=== PATIENT | male | born 1935 | race Caucasian/White ===

== ENCOUNTER 2017-09-27 10:18 | Inpatient (IN) | payer MEDICARE, BC ==
[2017-09-27 10:40] LABS: BASO % 0.6 % (0.0-1.0); EOS # 0.3 10^3/uL (0.0-0.50); EOS % 4.6 % (0.0-3.0); HEMATOCRIT 41.4 % (42.0-52.0); HEMOGLOBIN 13.7 g/dl (13.5-17.5); IMMATURE GRANULOCYTE % 0.5 % (0-3.0); LYMPH # 1.3 10^3/uL (1.5-4.5); LYMPH % 20.3 % (24.0-44.0); MEAN CORPUSCULAR HEMOGLOBIN 29.8 pg (27.0-33.0); MEAN CORPUSCULAR HGB CONC 33.1 g/dl (32.0-36.5); MONO # 0.7 10^3/uL (0.0-0.8); MONO % 11.2 % (0.0-5.0); NEUTROPHILS # 3.9 10^3/uL (1.8-7.7); NEUTROPHILS % 62.8 % (36.0-66.0); PLATELET COUNT, AUTOMATED 192 10^3/uL (150-450); RED CELL DISTRIBUTION WIDTH 13.2 % (11.5-14.5); WHITE BLOOD COUNT 6.3 10^3/uL (4.0-10.0)
[2017-09-27 10:56] LABS: INR 1.02; PROTHROMBIN TIME 13.5 SECONDS (12.1-14.4)
[2017-09-27] MEDS ORDERED: MORPHINE 4 MG/ML 1ML VIAL/SYRINGE (J2270) IV (11:00)
[2017-09-27] MEDS ORDERED: ACETAMINOPHEN TAB 650MG DOSE (2X325MG) PO (11:00)
[2017-09-27] MEDS ORDERED: ONDANSETRON 4MG/2ML VIAL (J2405) IV ×2 (11:00→20:15)
[2017-09-27 11:05] LABS: ALBUMIN 3.5 GM/DL (3.2-5.2); ALBUMIN/GLOBULIN RATIO 0.83 (1.00-1.93); ALKALINE PHOSPHATASE 54 U/L (45-117); ALT/SGPT 13 U/L (12-78); ANION GAP 6 MEQ/L (8-16); AST/SGOT 15 U/L (7-37); BILIRUBIN,DIRECT 0.1 MG/DL (0.0-0.2); BILIRUBIN,TOTAL 0.4 MG/DL (0.2-1.0); BLOOD UREA NITROGEN 14 MG/DL (7-18); CALCIUM LEVEL 8.3 MG/DL (8.8-10.2); CARBON DIOXIDE LEVEL 28 MEQ/L (21-32); CHLORIDE LEVEL 103 MEQ/L (98-107); CPK CREATINE PHOSPHOKINASE 76 U/L (39-308); CREATININE FOR GFR 0.94 MG/DL (0.70-1.30); FREE T4 0.84 NG/DL (0.76-1.46); GLOMERULAR FILTRATION RATE > 60.0 (>35); GLUCOSE, FASTING 139 MG/DL (70-100); LIPASE 138 U/L (73-393); POTASSIUM SERUM 3.8 MEQ/L (3.5-5.1); SODIUM LEVEL 137 MEQ/L (136-145); TOTAL PROTEIN 7.7 GM/DL (6.4-8.2); TROPONIN I 0.07 NG/ML (< 0.10)
[2017-09-27 11:11] LABS: CK-MB VALUE MASS 1.3 NG/ML (<3.6); MB/CK RELATIVE INDEX 1.71 (< OR =4)
[2017-09-27] MEDS ORDERED: GLUCOSE 4 GM CHEW TABLET PO (11:45)
[2017-09-27] MEDS ORDERED: DEXTROSE 50% 50 ML SYRINGE IV (11:45)
[2017-09-27] MEDS ORDERED: GLUCAGON FOR INJ 1 MG VIAL (J1610) SC (11:45)
[2017-09-27] MEDS: NS 1,000 ML IV (12:52)
[2017-09-27] MEDS: HumaLOG INSULIN (NovoLOG) PER UNIT SC ×3 (14:00→23:49)
[2017-09-27 14:24] LABS: BEDSIDE GLUCOSE 98 MG/DL (83-110)
[2017-09-27] MEDS: ceFAZolin SOD 1 GM in D5W MINI-BAG PLUS 50 ML IV (16:58)
[2017-09-27 17:34] LABS: CK-MB VALUE MASS 1.3 NG/ML (<3.6); CPK CREATINE PHOSPHOKINASE 59 U/L (39-308); TROPONIN I 0.08 NG/ML (< 0.10)
[2017-09-27] MEDS ORDERED: PROPOFOL 200 MG/20 ML VIAL As Ordered (17:57)
[2017-09-27] MEDS ORDERED: fentaNYL 100 MCG/2 ML INJECTION (J3010) As Ordered (17:57)
[2017-09-27] MEDS ORDERED: ONDANSETRON 4MG/2ML VIAL (J2405) As Ordered (17:57)
[2017-09-27] MEDS: VANCOMYCIN 1000 MG/20 ML VIAL (J3370) As Ordered (19:46)
[2017-09-27] MEDS: ISOVUE-300 61% 50ML VIAL (Q9967) As Ordered (19:47)
[2017-09-27] MEDS: MUPIROCIN 2% OINT 22 GM TUBE As Ordered (19:48)
[2017-09-27] MEDS: LIDOCAINE 1% SDV INJ 30 ML VIAL As Ordered (20:00)
[2017-09-27] MEDS: LR 1,000 ML IV (20:15)
[2017-09-27] MEDS ORDERED: fentaNYL 100 MCG/2 ML INJECTION (J3010) IV (20:15)
[2017-09-27] MEDS ORDERED: NORCO, ANEXSIA 5/325MG TABLET (HYDROcodone/ACETAMINOPHEN) PO (20:15)
[2017-09-27] MEDS: ASCORBIC ACID 250 MG TAB PO (21:39)
[2017-09-27] MEDS: TELMISARTAN 20 MG TAB PO (21:40)
[2017-09-27] MEDS: SLF 3 ML SYR IV (22:00)
[2017-09-27] MEDS: POLYVINYL ALCOHOL OPHTH SOLN 15 ML(LIQUITEARS) OU (22:52)
[2017-09-27 22:56] LABS: BEDSIDE GLUCOSE 91 MG/DL (83-110)
[2017-09-28 01:32] LABS: CK-MB VALUE MASS 1.3 NG/ML (<3.6); CPK CREATINE PHOSPHOKINASE 72 U/L (39-308); TROPONIN I 0.16 NG/ML (< 0.10)
[2017-09-28 04:57] LABS: HEMATOCRIT 39.7 % (42.0-52.0); MEAN CORPUSCULAR HEMOGLOBIN 29.5 pg (27.0-33.0); MEAN CORPUSCULAR HGB CONC 32.7 g/dl (32.0-36.5); PLATELET COUNT, AUTOMATED 170 10^3/uL (150-450); RED BLOOD COUNT 4.41 10^6/uL (4.30-6.10); RED CELL DISTRIBUTION WIDTH 13.1 % (11.5-14.5); WHITE BLOOD COUNT 9.4 10^3/uL (4.0-10.0)
[2017-09-28 05:13] LABS: ALBUMIN 3.1 GM/DL (3.2-5.2); ANION GAP 6 MEQ/L (8-16); BLOOD UREA NITROGEN 10 MG/DL (7-18); CALCIUM LEVEL 7.9 MG/DL (8.8-10.2); CARBON DIOXIDE LEVEL 26 MEQ/L (21-32); CHLORIDE LEVEL 109 MEQ/L (98-107); CREATININE FOR GFR 0.64 MG/DL (0.70-1.30); GLOMERULAR FILTRATION RATE > 60.0 (>35); GLUCOSE, FASTING 93 MG/DL (70-100); PHOSPHORUS LEVEL 2.8 MG/DL (2.5-4.9); POTASSIUM SERUM 3.5 MEQ/L (3.5-5.1); SODIUM LEVEL 141 MEQ/L (136-145)
[2017-09-28] MEDS: HumaLOG INSULIN (NovoLOG) PER UNIT SC ×4 (05:44→21:00)
[2017-09-28 08:56] LABS: CK-MB VALUE MASS 1.2 NG/ML (<3.6); CPK CREATINE PHOSPHOKINASE 89 U/L (39-308); MB/CK RELATIVE INDEX 1.34 (< OR =4); TROPONIN I 0.19 NG/ML (< 0.10)
[2017-09-28] MEDS: ASCORBIC ACID 250 MG TAB PO ×2 (09:00→20:19)
[2017-09-28 12:15] LABS: BEDSIDE GLUCOSE 123 MG/DL (83-110)
[2017-09-28] MEDS ORDERED: ceFAZolin 1GM INJ (J0690 PER 500MG) As Ordered (15:45)
[2017-09-28] MEDS: ceFAZolin SOD 1 GM in D5W MINI-BAG PLUS 50 ML IV (16:03)
[2017-09-28] MEDS ORDERED: fentaNYL 100 MCG/2 ML INJECTION (J3010) As Ordered (16:32)
[2017-09-28] MEDS ORDERED: MIDAZOLAM INJ 2 MG/2 ML VIAL (J2250) As Ordered (16:32)
[2017-09-28] MEDS ORDERED: LIDOCAINE 2% INJ 100 MG/5 ML SDV (FOR ANES.) As Ordered (16:32)
[2017-09-28] MEDS ORDERED: ONDANSETRON 4MG/2ML VIAL (J2405) As Ordered (16:32)
[2017-09-28] MEDS ORDERED: PHENYLEPHRINE INJ 10MG/ML VIAL (J2370) As Ordered (16:33)
[2017-09-28] MEDS ORDERED: PROPOFOL 200 MG/20 ML VIAL As Ordered (16:33)
[2017-09-28] MEDS: LIDOCAINE 1% SDV INJ 30 ML VIAL As Ordered (17:01)
[2017-09-28] MEDS ORDERED: BACITRACIN OINT 30GM As Ordered (17:12)
[2017-09-28] MEDS: LR 1,000 ML IV (17:45)
[2017-09-28] MEDS ORDERED: ONDANSETRON 4MG/2ML VIAL (J2405) IV (17:45)
[2017-09-28 18:43] LABS: BEDSIDE GLUCOSE 126 MG/DL (83-110)
[2017-09-28] MEDS ORDERED: SLF 3 ML SYR IV (19:30)
[2017-09-28] MEDS: TELMISARTAN 20 MG TAB PO (20:19)
[2017-09-28] MEDS: POLYVINYL ALCOHOL OPHTH SOLN 15 ML(LIQUITEARS) OU (21:00)
[2017-09-28] MEDS ORDERED: LATANOPROST 0.005% OPHTH SOLN 2.5 ML OU (21:00)
[2017-09-28 21:45] LABS: BEDSIDE GLUCOSE 137 MG/DL (83-110)
[2017-09-28] MEDS: LUMIGAN 0.01% EYE DROPS (PATIENT'S OWN MED) OU (21:46)
[2017-09-28] MEDS: EYE OD (21:46)
[2017-09-28] MEDS: COMBIGAN OD (21:46)
[2017-09-28] MEDS: EPINASTINE 0.05% OU (21:47)
[2017-09-29 00:09] LABS: Lyme Disease IgG/IgM Antibodie <0.91 ISR (0.00-0.90); Lyme Disease IgM Ab Quantitati <0.80 index (0.00-0.79)
[2017-09-29 04:35] LABS: HEMATOCRIT 38.6 % (42.0-52.0); MEAN CORPUSCULAR HEMOGLOBIN 30.1 pg (27.0-33.0); MEAN CORPUSCULAR HGB CONC 33.7 g/dl (32.0-36.5); MEAN CORPUSCULAR VOLUME 89.4 fl (80.0-96.0); PLATELET COUNT, AUTOMATED 152 10^3/uL (150-450); RED BLOOD COUNT 4.32 10^6/uL (4.30-6.10); WHITE BLOOD COUNT 7.3 10^3/uL (4.0-10.0)
[2017-09-29 04:49] LABS: ALBUMIN 2.9 GM/DL (3.2-5.2); ANION GAP 7 MEQ/L (8-16); BLOOD UREA NITROGEN 9 MG/DL (7-18); CALCIUM LEVEL 7.7 MG/DL (8.8-10.2); CARBON DIOXIDE LEVEL 27 MEQ/L (21-32); CHLORIDE LEVEL 107 MEQ/L (98-107); CREATININE FOR GFR 0.61 MG/DL (0.70-1.30); GLOMERULAR FILTRATION RATE > 60.0 (>35); GLUCOSE, FASTING 98 MG/DL (70-100); MAGNESIUM LEVEL 2.1 MG/DL (1.8-2.4); PHOSPHORUS LEVEL 2.9 MG/DL (2.5-4.9); POTASSIUM SERUM 3.5 MEQ/L (3.5-5.1); SODIUM LEVEL 141 MEQ/L (136-145)
[2017-09-29] MEDS: SLF 3 ML SYR IV (06:00)
[2017-09-29] MEDS: HumaLOG INSULIN (NovoLOG) PER UNIT SC ×2 (07:26→12:00)
[2017-09-29] MEDS: ASCORBIC ACID 250 MG TAB PO (09:30)
[2017-09-29] MEDS: COMBIGAN OD (09:30)
[2017-09-29] MEDS: EYE OD (09:30)
[2017-09-29] MEDS: EPINASTINE 0.05% OU (09:30)
[2017-09-29 12:18] LABS: BEDSIDE GLUCOSE 148 MG/DL (83-110)
== END 2017-09-29 14:16 | disposition home or self-care (01) | DRG 243 ==
LOC: M ICU 09-28 13:26 → M ED 10:18 → M ED INP 10:52 → M ICU 13:15
PROC: 0JH636Z Insertion of Pacemaker, Dual Chamber into Chest Subcutaneous Tissue and Fascia, Percutaneous Approach (ICD-10-PCS; principal; 2017-09-27 13:27)
PROC: 02H Heart and Great Vessels, Insertion (ICD-10-PCS; 2017-09-27 13:27)
PROC: 02WA3MZ Revision of Cardiac Lead in Heart, Percutaneous Approach (ICD-10-PCS; 2017-09-27 17:38)
DX: I44.1 Atrioventricular block, second degree (principal); T82.120A Displacement of cardiac electrode, initial encounter; I10 Essential (primary) hypertension; E11.9 Type 2 diabetes mellitus without complications; H40.9 Unspecified glaucoma; Z96.642 Presence of left artificial hip joint; Y82.8 Other medical devices associated with adverse incidents

== ENCOUNTER → 2017-11-08 | Outpatient (CLI) | payer MEDICARE, BC ==
[2017-11-08 12:58] LABS: BLOOD UREA NITROGEN 11 MG/DL (7-18)
[2017-11-08 12:58] LABS: CREATININE FOR GFR 0.75 MG/DL (0.70-1.30); GLOMERULAR FILTRATION RATE > 60.0 (>35)
== END ==
LOC: M LAB 11:35
DX: H47.291 Other optic atrophy, right eye (principal)
CPT/HCPCS: 82565

== ENCOUNTER → 2017-11-18 | Outpatient (CLI) | payer MEDICARE, BC ==
[~2017-11-18] MED LIST: ISOVUE-370 76% 100ML VIAL (Q9967) As Ordered
== END ==
LOC: M RAD 09:28
DX: H47.20 Unspecified optic atrophy (principal); I67.82 Cerebral ischemia
CPT/HCPCS: Q9967

== ENCOUNTER 2018-01-03 10:11 | Inpatient (IN) | payer MEDICARE, BC ==
[2018-01-03 11:01] LABS: HEMATOCRIT 39.9 % (42.0-52.0); HEMOGLOBIN 13.8 g/dl (13.5-17.5); MEAN CORPUSCULAR HEMOGLOBIN 29.8 pg (27.0-33.0); MEAN CORPUSCULAR HGB CONC 34.6 g/dl (32.0-36.5); MEAN CORPUSCULAR VOLUME 86.2 fl (80.0-96.0); PLATELET COUNT, AUTOMATED 165 10^3/uL (150-450); RED BLOOD COUNT 4.63 10^6/uL (4.30-6.10); RED CELL DISTRIBUTION WIDTH 13.4 % (11.5-14.5); WHITE BLOOD COUNT 11.6 10^3/uL (4.0-10.0)
[2018-01-03 11:12] LABS: ADD MANUAL DIFFER YES; DIFF SLIDE NUMBER 196; POSITIVE MORPH POS FLAG
[2018-01-03 11:30] LABS: BANDS 5 % (< 11); LYMPHOCYTES 10 % (16-52); MONOCYTES 7 % (0-8); NEUTROPHILS 78 % (35-75); PLATELET ESTIMATE NORMAL (NORMAL)
[2018-01-03 11:48] LABS: ANION GAP 10 MEQ/L (8-16); BLOOD UREA NITROGEN 10 MG/DL (7-18); CALCIUM LEVEL 8.1 MG/DL (8.8-10.2); CARBON DIOXIDE LEVEL 27 MEQ/L (21-32); CHLORIDE LEVEL 92 MEQ/L (98-107); CK-MB VALUE MASS < 1.0 NG/ML (<3.6); CPK CREATINE PHOSPHOKINASE 67 U/L (39-308); CREATININE FOR GFR 0.85 MG/DL (0.70-1.30); GLOMERULAR FILTRATION RATE > 60.0 (>35); GLUCOSE, FASTING 113 MG/DL (70-100); MB/CK RELATIVE INDEX 1.49 (< OR =4); NT-PRO BNP 1472 PG/ML (<450); POTASSIUM SERUM 4.3 MEQ/L (3.5-5.1); SODIUM LEVEL 129 MEQ/L (136-145); TROPONIN I 0.04 NG/ML (< 0.10)
[2018-01-03 11:53] LABS: INFLUENZA A AMPLIFICATION NEGATIVE (NEGATIVE); INFLUENZA B AMPLIFICATION NEGATIVE (NEGATIVE); RSV AMPLIFICATION NEGATIVE (NEGATIVE)
[2018-01-03] MEDS: ACETAMINOPHEN TAB 650MG DOSE (2X325MG) PO (12:38)
[2018-01-03] MEDS: NS 1,000 ML IV ×3 (13:25→23:53)
[2018-01-03] MEDS: cefTRIAXone SOD 1 GM in D5W MINI-BAG PLUS 50 ML IV (13:25)
[2018-01-03] MEDS ORDERED: ONDANSETRON 4 MG TAB (S0181) PO (14:30)
[2018-01-03] MEDS ORDERED: ACETAMINOPHEN TAB 650MG DOSE (2X325MG) PO (14:30)
[2018-01-03] MEDS ORDERED: IPRATROPIUM 0.5MG/ALBUTEROL 2.5MG INH SOL UD 3ML (DUONEB)(J7620) NEB (14:30)
[2018-01-03] MEDS ORDERED: DEXTRAN/HYPROMELLOSE OPHTH SOLN 15 ML(GENTEAL TEARS) OU (14:45)
[2018-01-03 15:00] LABS: OSMOLALITY SERUM 261 MOSM/KG (280-301)
[2018-01-03 15:24] LABS: CK-MB VALUE MASS < 1.0 NG/ML (<3.6); CPK CREATINE PHOSPHOKINASE 59 U/L (39-308); MB/CK RELATIVE INDEX 1.69 (< OR =4); TROPONIN I 0.04 NG/ML (< 0.10)
[2018-01-03] MEDS: AZITHROMYCIN 250 MG TAB PO (16:00)
[2018-01-03 16:44] LABS: ESTIMATED AVERAGE GLUCOSE 120 MG/DL (60-110); HEMOGLOBIN A1c 5.8 %
[2018-01-03 19:17] LABS: SODIUM,RANDOM URINE < 10 MEQ/L
[2018-01-03] MEDS: TELMISARTAN 20 MG TAB PO (21:00)
[2018-01-04] MEDS: UNRESOLVED CLARIFICATION ENTRY XX ×2 (00:01→22:22)
[2018-01-04] MEDS: cefTRIAXone SOD 2 GM in D5W MINI-BAG PLUS 50 ML IV (05:24)
[2018-01-04] MEDS ORDERED: AZITHROMYCIN INJ 500 MG, VIAL MATE ADAPTER 1 EACH in D5W 250 ML IV (06:00)
[2018-01-04 06:31] LABS: BASO % 0.3 % (0.0-1.0); EOS # 0.1 10^3/uL (0.0-0.50); EOS % 0.7 % (0.0-3.0); HEMATOCRIT 34.3 % (42.0-52.0); IMMATURE GRANULOCYTE % 0.4 % (0-3.0); LYMPH % 9.9 % (24.0-44.0); MEAN CORPUSCULAR HEMOGLOBIN 29.5 pg (27.0-33.0); MEAN CORPUSCULAR HGB CONC 34.1 g/dl (32.0-36.5); MEAN CORPUSCULAR VOLUME 86.6 fl (80.0-96.0); MONO # 1.3 10^3/uL (0.0-0.8); MONO % 13.8 % (0.0-5.0); NEUTROPHILS # 7.3 10^3/uL (1.8-7.7); NEUTROPHILS % 74.9 % (36.0-66.0); PLATELET COUNT, AUTOMATED 162 10^3/uL (150-450); RED BLOOD COUNT 3.96 10^6/uL (4.30-6.10); RED CELL DISTRIBUTION WIDTH 13.3 % (11.5-14.5); WHITE BLOOD COUNT 9.7 10^3/uL (4.0-10.0)
[2018-01-04 06:32] LABS: HEMOGLOBIN 11.7 g/dl (13.5-17.5)
[2018-01-04 06:48] LABS: ANION GAP 6 MEQ/L (8-16); BLOOD UREA NITROGEN 11 MG/DL (7-18); CALCIUM LEVEL 7.6 MG/DL (8.8-10.2); CARBON DIOXIDE LEVEL 27 MEQ/L (21-32); CHLORIDE LEVEL 95 MEQ/L (98-107); CREATININE FOR GFR 0.64 MG/DL (0.70-1.30); GLOMERULAR FILTRATION RATE > 60.0 (>35); GLUCOSE, FASTING 108 MG/DL (70-100); SODIUM LEVEL 128 MEQ/L (136-145)
[2018-01-04] MEDS: ENOXAPARIN 40 MG/0.4 ML SYRINGE (J1650) SC (09:00)
[2018-01-04] MEDS: AZITHROMYCIN 250 MG TAB PO (09:42)
[2018-01-04] MEDS: amLODIPine 5 MG TAB PO (09:42)
[2018-01-04] MEDS: FLUBLOK(EGG FREE)(QUAD)INFLUENZA VACC 0.5ML SYRINGE (90682)18YRS&OLDER IM (09:47)
[2018-01-04] MEDS: NS 1,000 ML IV (09:48)
[2018-01-04] MEDS: TELMISARTAN 20 MG TAB PO (21:00)
[2018-01-05 02:43] LABS: BEDSIDE GLUCOSE 122 MG/DL (83-110)
[2018-01-05 02:43] LABS: BEDSIDE GLUCOSE 144 MG/DL (83-110)
[2018-01-05] MEDS: cefTRIAXone SOD 2 GM in D5W MINI-BAG PLUS 50 ML IV (06:20)
[2018-01-05] MEDS: AZITHROMYCIN 250 MG TAB PO (08:14)
[2018-01-05] MEDS: ENOXAPARIN 40 MG/0.4 ML SYRINGE (J1650) SC (08:15)
[2018-01-05] MEDS: amLODIPine 5 MG TAB PO (08:15)
[2018-01-05 08:44] LABS: BASO # 0.1 10^3/uL (0.0-0.2); BASO % 0.6 % (0.0-1.0); EOS # 0.2 10^3/uL (0.0-0.50); EOS % 1.6 % (0.0-3.0); HEMATOCRIT 36.1 % (42.0-52.0); HEMOGLOBIN 12.3 g/dl (13.5-17.5); IMMATURE GRANULOCYTE % 0.7 % (0-3.0); LYMPH # 0.9 10^3/uL (1.5-4.5); LYMPH % 8.2 % (24.0-44.0); MEAN CORPUSCULAR HEMOGLOBIN 29.1 pg (27.0-33.0); MEAN CORPUSCULAR HGB CONC 34.1 g/dl (32.0-36.5); MEAN CORPUSCULAR VOLUME 85.5 fl (80.0-96.0); MONO # 1.1 10^3/uL (0.0-0.8); NEUTROPHILS # 8.4 10^3/uL (1.8-7.7); NEUTROPHILS % 78.9 % (36.0-66.0); PLATELET COUNT, AUTOMATED 201 10^3/uL (150-450); RED BLOOD COUNT 4.22 10^6/uL (4.30-6.10); RED CELL DISTRIBUTION WIDTH 13.3 % (11.5-14.5); WHITE BLOOD COUNT 10.7 10^3/uL (4.0-10.0)
[2018-01-05 09:03] LABS: ANION GAP 11 MEQ/L (8-16); BLOOD UREA NITROGEN 12 MG/DL (7-18); CALCIUM LEVEL 7.6 MG/DL (8.8-10.2); CARBON DIOXIDE LEVEL 22 MEQ/L (21-32); CHLORIDE LEVEL 94 MEQ/L (98-107); CREATININE FOR GFR 0.68 MG/DL (0.70-1.30); GLOMERULAR FILTRATION RATE > 60.0 (>35); GLUCOSE, FASTING 142 MG/DL (70-100); POTASSIUM SERUM 4.1 MEQ/L (3.5-5.1); SODIUM LEVEL 127 MEQ/L (136-145)
[2018-01-05] MEDS: TELMISARTAN 20 MG TAB PO (21:53)
[2018-01-06] MEDS: UNRESOLVED CLARIFICATION ENTRY XX (00:01)
[2018-01-06] MEDS: cefTRIAXone SOD 2 GM in D5W MINI-BAG PLUS 50 ML IV (06:04)
[2018-01-06 06:13] LABS: BASO % 0.4 % (0.0-1.0); EOS # 0.2 10^3/uL (0.0-0.50); EOS % 2.7 % (0.0-3.0); HEMOGLOBIN 11.4 g/dl (13.5-17.5); IMMATURE GRANULOCYTE % 0.8 % (0-3.0); MEAN CORPUSCULAR HEMOGLOBIN 28.9 pg (27.0-33.0); MEAN CORPUSCULAR HGB CONC 34.5 g/dl (32.0-36.5); MEAN CORPUSCULAR VOLUME 83.8 fl (80.0-96.0); MONO # 1.4 10^3/uL (0.0-0.8); NEUTROPHILS # 6.2 10^3/uL (1.8-7.7); NEUTROPHILS % 69.1 % (36.0-66.0); PLATELET COUNT, AUTOMATED 229 10^3/uL (150-450); RED BLOOD COUNT 3.94 10^6/uL (4.30-6.10); RED CELL DISTRIBUTION WIDTH 13.1 % (11.5-14.5); WHITE BLOOD COUNT 8.9 10^3/uL (4.0-10.0)
[2018-01-06 06:31] LABS: ANION GAP 7 MEQ/L (8-16); BLOOD UREA NITROGEN 7 MG/DL (7-18); C REACTIVE PROTEIN QUANTITATIV 8.48 MG/DL (0.00-0.30); CALCIUM LEVEL 7.6 MG/DL (8.8-10.2); CARBON DIOXIDE LEVEL 24 MEQ/L (21-32); CHLORIDE LEVEL 95 MEQ/L (98-107); CREATININE FOR GFR 0.67 MG/DL (0.70-1.30); GLOMERULAR FILTRATION RATE > 60.0 (>35); GLUCOSE, FASTING 125 MG/DL (70-100); MAGNESIUM LEVEL 1.9 MG/DL (1.8-2.4); POTASSIUM SERUM 3.7 MEQ/L (3.5-5.1); SODIUM LEVEL 126 MEQ/L (136-145)
[2018-01-06] MEDS: NS 1,000 ML IV ×2 (09:40→18:56)
[2018-01-06] MEDS: ENOXAPARIN 40 MG/0.4 ML SYRINGE (J1650) SC (09:40)
[2018-01-06] MEDS: AZITHROMYCIN 250 MG TAB PO (09:40)
[2018-01-06] MEDS: amLODIPine 5 MG TAB PO (09:41)
[2018-01-06] MEDS: TELMISARTAN 20 MG TAB PO (23:54)
[2018-01-07] MEDS: cefTRIAXone SOD 2 GM in D5W MINI-BAG PLUS 50 ML IV (05:08)
[2018-01-07 06:45] LABS: BASO # 0.1 10^3/uL (0.0-0.2); BASO % 0.7 % (0.0-1.0); EOS # 0.3 10^3/uL (0.0-0.50); EOS % 3.1 % (0.0-3.0); HEMATOCRIT 37.5 % (42.0-52.0); IMMATURE GRANULOCYTE % 1.1 % (0-3.0); LYMPH # 1.5 10^3/uL (1.5-4.5); LYMPH % 17.7 % (24.0-44.0); MEAN CORPUSCULAR HEMOGLOBIN 29.5 pg (27.0-33.0); MEAN CORPUSCULAR HGB CONC 34.7 g/dl (32.0-36.5); MEAN CORPUSCULAR VOLUME 85.2 fl (80.0-96.0); MONO # 1.3 10^3/uL (0.0-0.8); MONO % 15.7 % (0.0-5.0); NEUTROPHILS # 5.1 10^3/uL (1.8-7.7); NEUTROPHILS % 61.7 % (36.0-66.0); PLATELET COUNT, AUTOMATED 303 10^3/uL (150-450); RED CELL DISTRIBUTION WIDTH 13.2 % (11.5-14.5); WHITE BLOOD COUNT 8.3 10^3/uL (4.0-10.0)
[2018-01-07 07:16] LABS: ANION GAP 8 MEQ/L (8-16); BLOOD UREA NITROGEN 6 MG/DL (7-18); CALCIUM LEVEL 8.3 MG/DL (8.8-10.2); CARBON DIOXIDE LEVEL 26 MEQ/L (21-32); CHLORIDE LEVEL 100 MEQ/L (98-107); CREATININE FOR GFR 0.64 MG/DL (0.70-1.30); GLOMERULAR FILTRATION RATE > 60.0 (>35); GLUCOSE, FASTING 87 MG/DL (70-100); MAGNESIUM LEVEL 2.1 MG/DL (1.8-2.4); POTASSIUM SERUM 4.1 MEQ/L (3.5-5.1); SODIUM LEVEL 134 MEQ/L (136-145)
[2018-01-07] MEDS: amLODIPine 5 MG TAB PO (08:22)
[2018-01-07] MEDS: ENOXAPARIN 40 MG/0.4 ML SYRINGE (J1650) SC (08:22)
[2018-01-07] MEDS: AZITHROMYCIN 250 MG TAB PO (08:22)
[2018-01-09 00:08] LABS: BODY FLUID CULTURE Not Indicated (.); LEGIONELLA ANTIGEN URINE Negative (Negative); ORGANISM ID Not indicated. (.); SPECIMEN SOURCE Urine (.); URINE STREP PNEUMONIAE ANTIGEN Negative (Negative)
== END 2018-01-07 11:30 | disposition home or self-care (01) | DRG 194 ==
LOC: M ED 10:11 → M ED INP 14:08 → M MS5PR 16:41
DX: J18.9 Pneumonia, unspecified organism (principal); E87.1 Hypo-osmolality and hyponatremia; E11.9 Type 2 diabetes mellitus without complications; I10 Essential (primary) hypertension; R00.1 Bradycardia, unspecified; Z79.899 Other long term (current) drug therapy; Z95.0 Presence of cardiac pacemaker; Z96.642 Presence of left artificial hip joint; Z85.828 Personal history of other malignant neoplasm of skin

== ENCOUNTER → 2018-03-18 | Outpatient (CLI) | payer MEDICARE, BC ==
[~2018-03-18] MED LIST changes: +/WARF25TA OR; +AMLO5TAB6 PO; +ASCO250T PO; +ASCO25TA PO; +BIMA01SOL OU; +CEFD1CAP8 PO; +COMB0.2S OD; +ENALAPRIL PO; +EPIN0.054 OU; +EPIN1DRO OU; +HYDR12.55 PO; +HYDROCHLOROTHIZIDE PO; -ISOVUE-370 76% 100ML VIAL (Q9967) As Ordered; +LIPITOR PO; +METF500T13 PO; +METH50TA2 PO; +MICA5TAB PO; +PERCOCET OR; +RHIN32SU; +SLOWTAB2 PO; +TELM1TAB37 PO; +TYLE325T5 PO; +VENTAER INH; +VYZU0.02 OU
--- NOTE | 2018-03-18 17:50 | REP ---
Duplex carotid sonography: History: Optic atrophy right eye. Visual loss, right eye. No comparison sonography. Findings: Antegrade flow was observed in both vertebral arteries. Right carotid: The right common carotid artery shows mild diffuse intimal thickening. There is minimal soft plaquing in the bulb and proximal ICA on right side on two-dimensional scanning. Color flow and spectral Doppler interrogation are unremarkable on the right. Velocity chart right carotid: Right CCA PSV 97 cm/S Right ICA PSV 83 EDV 26 Right ECA PSV 62 Right ICA/CCA ratio normal 0.9. Impression: 0-15% category narrowing in the right ICA by Doppler velocity criteria. Left carotid: Left common carotid artery shows diffuse intimal thickening. There is moderate mixed plaquing focally in the left carotid bulb on two-dimensional scanning. Color flow and spectral Doppler interrogation are unremarkable however on the left. Velocity chart left carotid: Left CCA PSV 100 cm/S Left ICA PSV 77 EDV 22 Left ECA PSV 52 Left ICA/CCA ratio normal for 0.8. Impression: 16-49% category narrowing in the left ICA by Doppler velocity criteria. Electronically Signed by Maico Biggs MD 03/18/2018 06:18 P
== END ==
LOC: M RAD 13:09
PROVIDERS: ATTEND Ophthalmology
DX: H53.121 Transient visual loss, right eye (principal); I65.22 Occlusion and stenosis of left carotid artery

== ENCOUNTER 2023-03-20 15:36 | Inpatient (IN) | payer BC, MEDICARE ==
[~2023-03-20] VITALS: Ht 180.3 cm; Wt 75.0 kg
[~2023-03-20 15:36] MED LIST changes: -/WARF25TA OR; +AMLO1TAB24 PO; -AMLO5TAB6 PO; +ASCO250T20 PO; -ASCO25TA PO; -CEFD1CAP8 PO; +CEFD1CAP9 PO; +COUM1TAB18 OR; +METH50TA10 PO; -METH50TA2 PO; +OXYC1TAB23 OR; -PERCOCET OR
[2023-03-20 16:27] LABS: VENOUS BASE EXCESS -0.5 (-2.0-2.0); VENOUS HCO3 22.9 MMOL/L (23.0-27.0); VENOUS PARTIAL PRESSURE CO2 34.3 mmHg (38.0-50.0); VENOUS PARTIAL PRESSURE O2 71.9 mmHg (30.0-50.0); VENOUS PH 7.442 UNITS (7.330-7.430); VENOUS TOTAL CO2 23.9 MMOL/L (24.0-28.0)
[2023-03-20 16:34] LABS: BASO % 0.4 % (0.0-1.0); EOS # 0.1 10^3/uL (0.0-0.5); EOS % 0.8 % (0.0-3.0); HEMOGLOBIN 15.5 g/dl (13.5-17.5); LYMPH # 1.7 10^3/uL (1.5-5.0); LYMPH % 15.3 % (24.0-44.0); MEAN CORPUSCULAR HEMOGLOBIN 29.9 pg (27.0-33.0); MEAN CORPUSCULAR HGB CONC 34.4 g/dl (32.0-36.5); MEAN CORPUSCULAR VOLUME 86.9 fl (80.0-96.0); MONO % 8.9 % (2.0-8.0); NEUTROPHILS # 8.3 10^3/uL (1.5-8.5); NEUTROPHILS % 74.2 % (36.0-66.0); PLATELET COUNT, AUTOMATED 253 10^3/uL (150-450); RED BLOOD COUNT 5.18 10^6/uL (4.30-6.10); WHITE BLOOD COUNT 11.1 10^3/uL (4.0-10.0)
[2023-03-20 16:57] LABS: ALBUMIN 3.9 G/DL (3.2-5.2); ALKALINE PHOSPHATASE 97 U/L (46-116); ALT/SGPT 18 U/L (7.0-40); AST/SGOT 23 U/L (<34); BILIRUBIN,DIRECT 0.2 MG/DL (<0.4); BILIRUBIN,TOTAL 0.6 MG/DL (0.3-1.2); BLOOD UREA NITROGEN 11 MG/DL (9-23); CALCIUM LEVEL 9.2 MG/DL (8.3-10.6); CARBON DIOXIDE LEVEL 26 MMOL/L (20-31); CHLORIDE LEVEL 96 MMOL/L (98-107); CREATININE FOR GFR 0.64 MG/DL (0.70-1.30); GLOMERULAR FILTRATION RATE > 60.0 (>35); GLUCOSE, FASTING 123 MG/DL (74-106); POTASSIUM SERUM 4.3 MMOL/L (3.5-5.1); SODIUM LEVEL 129 MMOL/L (136-145); TOTAL PROTEIN 7.7 G/DL (5.7-8.2)
[2023-03-20 16:59] LABS: THYROID STIMULATING HORMONE 4.405 uIU/ML (0.55-4.78)
[2023-03-20] MEDS ORDERED: ISOVUE-370 76% 100ML VIAL As Ordered ONE (17:09)
[2023-03-20] MEDS ORDERED: methylPREDNISolone 125MG 2ML VIAL IV ONE (17:45)
[2023-03-20] MEDS ORDERED: AZITHROMYCIN 250MG TABLET PO ONE (17:45)
[2023-03-20] MEDS ORDERED: cefTRIAXone SOD 1 GM in D5W MINI-BAG PLUS 50 ML IV ONE (17:45)
[2023-03-20] MEDS ORDERED: IPRATROPIUM 0.5MG/ALBUTEROL 2.5MG INH SOL UD 3ML (DUONEB) NEB PRN (17:45)
[2023-03-20] MEDS ORDERED: MED REC IN PROGRESS XX SCH (18:50)
[2023-03-20] MEDS ORDERED: MAALOX 30 ML SUSP *UDC PO PRN (19:35)
[2023-03-20] MEDS ORDERED: MOM 30ML SUSPENSION UDC PO PRN (19:35)
[2023-03-20] MEDS ORDERED: ACETAMINOPHEN TAB 650MG DOSE (2X325MG) PO PRN (19:35)
[2023-03-20] MEDS ORDERED: CLOT1CRE71 TOP (19:39)
[2023-03-20] MEDS ORDERED: HYDR12CA PO (19:39)
[2023-03-20] MEDS ORDERED: CLOT1CRE56 TOP (19:39)
[2023-03-20] MEDS ORDERED: XALA0.007 OU (19:39)
[2023-03-20] MEDS ORDERED: FLUT1BLS8 INH (19:39)
[2023-03-20] MEDS ORDERED: ATOR1TAB19 PO (19:39)
[2023-03-20] MEDS ORDERED: TAMS1CAP17 PO (19:39)
[2023-03-20] MEDS ORDERED: ERYT5OIN25 OU (19:39)
[2023-03-20] MEDS ORDERED: PREDOPD OD (19:39)
[2023-03-20] MEDS ORDERED: ASCO250T20 PO (19:44)
[2023-03-20] MEDS ORDERED: HOME MED LIST COMPLETE! XX SCH (19:45)
[2023-03-20] MEDS: NS 1,000 ML IV SCH (20:08)
[2023-03-20] MEDS ORDERED: CLOTRIMAZOLE 1% TOPICAL CREAM 30GM TOP PRN (20:15)
[2023-03-20] MEDS ORDERED: ERYTHROMYCIN OPHTH OINT OU PRN (20:15)
[2023-03-20] MEDS ORDERED: ALBUTEROL 90 MCG/ACT 8GM HFA INHALER INH PRN (20:15)
[2023-03-20 20:39] LABS: PROCALCITONIN <0.04 ng/ml
[2023-03-20 21:46] LABS: INR 1.1; PROTHROMBIN TIME 13.9 SECONDS (12.5-14.5)
[2023-03-20 21:47] LABS: PARTIAL THROMBOPLASTIN TIME 31.3 SECONDS (24.8-34.2)
[2023-03-20] MEDS: IPRATROPIUM 0.5MG/ALBUTEROL 2.5MG INH SOL UD 3ML (DUONEB) INH SCH (22:03)
[2023-03-20] MEDS: TELMISARTAN 20 MG TAB PO SCH (23:59)
[2023-03-20] MEDS: TAMSULOSIN 0.4 MG CAP PO SCH (23:59)
[2023-03-20] MEDS: ATORVASTATIN 10 MG TAB PO SCH (23:59)
[2023-03-20] MEDS: ASCORBIC ACID 250 MG TAB PO SCH (23:59)
[2023-03-21] MEDS: IPRATROPIUM 0.5MG/ALBUTEROL 2.5MG INH SOL UD 3ML (DUONEB) INH SCH (01:17)
[2023-03-21] MEDS: NS 1,000 ML IV SCH ×3 (04:40→20:44)
[2023-03-21] MEDS ORDERED: metFORMIN (GLUCOPHAGE) 500MG TAB PO SCH (08:00)
[2023-03-21] MEDS: TIOTROPIUM INHALER/CAPSULE (SPIRIVA) INH SCH (08:24)
[2023-03-21] MEDS: IPRATROPIUM 0.5MG/ALBUTEROL 2.5MG INH SOL UD 3ML (DUONEB) NEB SCH ×5 (08:25→23:54)
[2023-03-21] MEDS: ADVAIR HFA 230/21MCG INHALER INH SCH ×2 (08:25→19:17)
[2023-03-21] MEDS: LACTOBACILLUS ACIDOPHILUS CAP (BACID) PO SCH ×3 (08:53→18:00)
[2023-03-21] MEDS: CEFDINIR 300 MG CAP (OMNICEF) PO SCH ×2 (08:53→21:47)
[2023-03-21] MEDS: hydroCHLOROthiazide 12.5 MG CAPSULE PO SCH (08:53)
[2023-03-21] MEDS: DOCUSATE SODIUM 100MG CAPSULE PO SCH ×3 (08:54→21:50)
[2023-03-21] MEDS: guaiFENesin ER TABLET 600 MG TAB PO SCH ×2 (08:54→20:29)
[2023-03-21] MEDS: predniSONE 20 MG TAB PO SCH (08:54)
[2023-03-21] MEDS: AZITHROMYCIN 250MG TABLET PO SCH (08:54)
[2023-03-21] MEDS: amLODIPine 5 MG TAB PO SCH (08:55)
[2023-03-21] MEDS: PANTOPRAZOLE 40MG TAB (PROTONIX) PO SCH (08:55)
[2023-03-21] MEDS ORDERED: ENOXAPARIN 40MG/0.4ML SYRINGE (J1650 PER 10MG) SC SCH (09:00)
[2023-03-21] MEDS ORDERED: ENTER DRUG NAME HERE (PATIENT'S OWN MED) INH SCH (09:00)
[2023-03-21] MEDS: ASCORBIC ACID 250 MG TAB PO SCH ×2 (09:00→21:47)
[2023-03-21] MEDS: ENOXAPARIN 40MG/0.4ML SYRINGE (J1650 PER 10MG) SC SCH (09:00)
[2023-03-21] MEDS: prednisoLONE ACET 1% OPHTH SUSP 5ML OD SCH (09:00)
[2023-03-21 09:03] LABS: BASO % 0.1 % (0.0-1.0); HEMOGLOBIN 14.3 g/dl (13.5-17.5); LYMPH # 1.1 10^3/uL (1.5-5.0); LYMPH % 9.8 % (24.0-44.0); MEAN CORPUSCULAR HGB CONC 34.9 g/dl (32.0-36.5); MONO # 0.2 10^3/uL (0.0-0.8); MONO % 2.1 % (2.0-8.0); NEUTROPHILS # 9.4 10^3/uL (1.5-8.5); NEUTROPHILS % 87.4 % (36.0-66.0); PLATELET COUNT, AUTOMATED 238 10^3/uL (150-450); RED BLOOD COUNT 4.77 10^6/uL (4.30-6.10); WHITE BLOOD COUNT 10.7 10^3/uL (4.0-10.0)
[2023-03-21 09:04] LABS: HEMATOCRIT 41.3 % (42.0-52.0); MEAN CORPUSCULAR HEMOGLOBIN 29.4 pg (27.0-33.0); MEAN CORPUSCULAR HGB CONC 33.9 g/dl (32.0-36.5); MEAN CORPUSCULAR VOLUME 86.8 fl (80.0-96.0); PLATELET COUNT, AUTOMATED 230 10^3/uL (150-450); RED BLOOD COUNT 4.76 10^6/uL (4.30-6.10); WHITE BLOOD COUNT 10.4 10^3/uL (4.0-10.0)
[2023-03-21 09:37] LABS: BLOOD UREA NITROGEN 14 MG/DL (9-23); CALCIUM LEVEL 8.6 MG/DL (8.3-10.6); CARBON DIOXIDE LEVEL 23 MMOL/L (20-31); CHLORIDE LEVEL 98 MMOL/L (98-107); CREATININE FOR GFR 0.59 MG/DL (0.70-1.30); GLOMERULAR FILTRATION RATE > 60.0 (>35); GLUCOSE, FASTING 243 MG/DL (74-106); MAGNESIUM LEVEL 1.8 MG/DL (1.8-2.4); OSMOLALITY SERUM 287 MOSM/KG (280-301); POTASSIUM SERUM 4.2 MMOL/L (3.5-5.1); SODIUM LEVEL 130 MMOL/L (136-145)
[2023-03-21 09:40] LABS: ALBUMIN 3.4 G/DL (3.2-5.2); ALKALINE PHOSPHATASE 86 U/L (46-116); ALT/SGPT 18 U/L (7.0-40); AST/SGOT 15 U/L (<34); BILIRUBIN,TOTAL 0.5 MG/DL (0.3-1.2); BLOOD UREA NITROGEN 14 MG/DL (9-23); CALCIUM LEVEL 8.5 MG/DL (8.3-10.6); CARBON DIOXIDE LEVEL 23 MMOL/L (20-31); CHLORIDE LEVEL 100 MMOL/L (98-107); CREATININE FOR GFR 0.61 MG/DL (0.70-1.30); GLOMERULAR FILTRATION RATE > 60.0 (>35); GLUCOSE, FASTING 233 MG/DL (74-106); POTASSIUM SERUM 4.3 MMOL/L (3.5-5.1); SODIUM LEVEL 132 MMOL/L (136-145); TOTAL PROTEIN 6.9 G/DL (5.7-8.2)
[2023-03-21] MEDS ORDERED: SODIUM CHLORIDE NASAL 0.65% SPRAY BTL (OCEAN) PRN (11:50)
[2023-03-21] MEDS: SODIUM CHLORIDE 0.9% NASAL GEL 15GM (AYR) SCH ×3 (13:00→20:31)
[2023-03-21] MEDS ORDERED: cefTRIAXone SOD 1 GM in D5W MINI-BAG PLUS 50 ML IV SCH (18:00)
[2023-03-21] MEDS ORDERED: AZITHROMYCIN 250MG TABLET PO SCH (18:00)
[2023-03-21] MEDS: ATORVASTATIN 10 MG TAB PO SCH (20:29)
[2023-03-21] MEDS: LATANOPROST 0.005% OPHTH SOLN 2.5 ML OU SCH ×2 (20:30)
[2023-03-21] MEDS: TELMISARTAN 20 MG TAB PO SCH (21:47)
[2023-03-21] MEDS: TAMSULOSIN 0.4 MG CAP PO SCH (21:50)
[2023-03-22 01:05] VITALS: BP 140/89; TEMP 97.7; O2SAT 89
[2023-03-22 02:10] LABS: OSMOLALITY URINE 560 MOSM/KG (50-1400)
[2023-03-22] MEDS: IPRATROPIUM 0.5MG/ALBUTEROL 2.5MG INH SOL UD 3ML (DUONEB) NEB SCH ×2 (02:56→07:33)
[2023-03-22] MEDS: NS 1,000 ML IV SCH (04:46)
[2023-03-22 05:04] LABS: SODIUM,RANDOM URINE 53 MMOL/L
[2023-03-22 05:30] VITALS: BP 110/65; TEMP 97.7; O2SAT 91
[2023-03-22 05:51] LABS: BASO % 0.1 % (0.0-1.0); EOS % 0.1 % (0.0-3.0); HEMATOCRIT 32.8 % (42.0-52.0); HEMOGLOBIN 11.5 g/dl (13.5-17.5); LYMPH # 1.9 10^3/uL (1.5-5.0); LYMPH % 11.3 % (24.0-44.0); MEAN CORPUSCULAR HEMOGLOBIN 30.3 pg (27.0-33.0); MEAN CORPUSCULAR HGB CONC 35.1 g/dl (32.0-36.5); MEAN CORPUSCULAR VOLUME 86.5 fl (80.0-96.0); MONO # 1.4 10^3/uL (0.0-0.8); NEUTROPHILS # 13.4 10^3/uL (1.5-8.5); NEUTROPHILS % 79.8 % (36.0-66.0); PLATELET COUNT, AUTOMATED 210 10^3/uL (150-450); RED BLOOD COUNT 3.79 10^6/uL (4.30-6.10); WHITE BLOOD COUNT 16.8 10^3/uL (4.0-10.0)
[2023-03-22 06:13] LABS: BLOOD UREA NITROGEN 16 MG/DL (9-23); CALCIUM LEVEL 7.5 MG/DL (8.3-10.6); CARBON DIOXIDE LEVEL 23 MMOL/L (20-31); CHLORIDE LEVEL 103 MMOL/L (98-107); CREATININE FOR GFR 0.64 MG/DL (0.70-1.30); GLOMERULAR FILTRATION RATE > 60.0 (>35); GLUCOSE, FASTING 150 MG/DL (74-106); POTASSIUM SERUM 3.7 MMOL/L (3.5-5.1); SODIUM LEVEL 132 MMOL/L (136-145)
[2023-03-22] MEDS: ADVAIR HFA 230/21MCG INHALER INH SCH (07:33)
[2023-03-22] MEDS: TIOTROPIUM INHALER/CAPSULE (SPIRIVA) INH SCH (07:33)
[2023-03-22] MEDS: predniSONE 20 MG TAB PO SCH (08:21)
[2023-03-22] MEDS: PANTOPRAZOLE 40MG TAB (PROTONIX) PO SCH (08:21)
[2023-03-22] MEDS: guaiFENesin ER TABLET 600 MG TAB PO SCH (08:21)
[2023-03-22 08:23] VITALS: BP 125/74
[2023-03-22] MEDS: amLODIPine 5 MG TAB PO SCH (08:23)
[2023-03-22] MEDS: CEFDINIR 300 MG CAP (OMNICEF) PO SCH (08:24)
[2023-03-22] MEDS: hydroCHLOROthiazide 12.5 MG CAPSULE PO SCH (08:24)
[2023-03-22] MEDS: AZITHROMYCIN 250MG TABLET PO SCH (08:24)
[2023-03-22] MEDS: ENOXAPARIN 40MG/0.4ML SYRINGE (J1650 PER 10MG) SC SCH (08:24)
[2023-03-22] MEDS: prednisoLONE ACET 1% OPHTH SUSP 5ML OD SCH (08:24)
[2023-03-22] MEDS: LACTOBACILLUS ACIDOPHILUS CAP (BACID) PO SCH (08:24)
[2023-03-22] MEDS: ASCORBIC ACID 250 MG TAB PO SCH (08:24)
[2023-03-22] MEDS: DOCUSATE SODIUM 100MG CAPSULE PO SCH (08:24)
[2023-03-22] MEDS: SODIUM CHLORIDE 0.9% NASAL GEL 15GM (AYR) SCH (08:25)
[2023-03-22] MEDS ORDERED: PRED10TA2 PO (10:25)
[2023-03-22] MEDS ORDERED: MUCI600T31 PO (10:25)
[2023-03-22] MEDS ORDERED: AZIT-12 PO (10:25)
[2023-03-22] MEDS ORDERED: EQL0.65S NARES (10:25)
[2023-03-22] MEDS ORDERED: ALBU6.7H6 INH (10:25)
[2023-03-22] MEDS ORDERED: FLON1SPR NARES (10:25)
[2023-03-22] MEDS ORDERED: RISATAB3 PO (10:25)
[2023-03-22] MEDS ORDERED: TIOT18INH INH (10:25)
[2023-03-22] MEDS ORDERED: CEFD300CAP PO (10:25)
== END 2023-03-22 11:29 | disposition home or self-care (01) | DRG 190 ==
LOC: M ED 15:36 → M ED INP 19:33 → M MSPAV 03-22 01:04
PROVIDERS: ADMIT Internal Medicine; ATTEND General Practice
DX: J47.1 Bronchiectasis with (acute) exacerbation (principal); J15.69 Pneumonia due to other Gram-negative bacteria; E87.1 Hypo-osmolality and hyponatremia; I13.0 Hypertensive heart and chronic kidney disease with heart failure and stage 1 through stage 4 chronic kidney disease, or unspecified chronic kidney disease; I50.32 Chronic diastolic (congestive) heart failure; E11.21 Type 2 diabetes mellitus with diabetic nephropathy; Z95.0 Presence of cardiac pacemaker; M17.12 Unilateral primary osteoarthritis, left knee; M16.12 Unilateral primary osteoarthritis, left hip; K21.9 Gastro-esophageal reflux disease without esophagitis; R91.1 Solitary pulmonary nodule; I25.10 Atherosclerotic heart disease of native coronary artery without angina pectoris; I44.7 Left bundle-branch block, unspecified; N40.0 Benign prostatic hyperplasia without lower urinary tract symptoms; N18.30 Chronic kidney disease, stage 3 unspecified; E11.51 Type 2 diabetes mellitus with diabetic peripheral angiopathy without gangrene; Z89.422 Acquired absence of other left toe(s); K59.00 Constipation, unspecified; Z79.899 Other long term (current) drug therapy; Z85.828 Personal history of other malignant neoplasm of skin; Z96.642 Presence of left artificial hip joint; Z98.41 Cataract extraction status, right eye; Z98.42 Cataract extraction status, left eye; H90.5 Unspecified sensorineural hearing loss; J32.9 Chronic sinusitis, unspecified

== ENCOUNTER → 2023-05-02 | Outpatient (CLI) | payer MEDICARE ==
[~2023-05-02] MED LIST changes: +ALBU6.7H6 INH; +ATOR1TAB19 PO; +AZIT-12 PO; +CEFD300CAP PO; +CLOT1CRE56 TOP; +CLOT1CRE71 TOP; +EQL0.65S NARES; +ERYT5OIN25 OU; +FLON1SPR NARES; +FLUT1BLS8 INH; +HYDR12CA PO; +MUCI600T31 PO; +PRED10TA2 PO; +PREDOPD OD; +RISATAB3 PO; +TAMS1CAP17 PO; +TIOT18INH INH; +XALA0.007 OU
[2023-05-02 16:42] LABS: C REACTIVE PROTEIN QUANTITATIV < 0.40 MG/DL (<1.0)
[2023-05-02 16:44] LABS: RHEUMATOID FACTOR QUANT < 3.5 IU/ML (<14)
== END ==
LOC: M LAB 15:21
PROVIDERS: ATTEND Internal Medicine Pulmonary Disease
DX: J84.9 Interstitial pulmonary disease, unspecified (principal)

== ENCOUNTER → 2023-05-14 | Outpatient (CLI) | payer MEDICARE | LOC: M PLAIMG 09:46 | PROVIDERS: ATTEND Internal Medicine Pulmonary Disease | DX: R91.8 Other nonspecific abnormal finding of lung field (principal); J43.9 Emphysema, unspecified ==

== ENCOUNTER → 2023-12-12 | Outpatient (CLI) | payer MEDICARE ==
[2023-12-12 13:34] LABS: CHOLESTEROL RISK RATIO 2.6 (<5); HDL CHOLESTEROL 60.7 MG/DL (>40); LDL CHOLESTEROL 83.3 MG/DL (<100); NON-HDL-C 97.3 MG/DL
== END ==
LOC: M LAB 09:32
PROVIDERS: ATTEND Registered Nurse
DX: E78.2 Mixed hyperlipidemia (principal)

== ENCOUNTER 2024-02-02 10:07 | Observation (INO) | payer MEDICARE ==
[~2024-02-02] VITALS: Ht 177.8 cm; Wt 82.2 kg
[~2024-02-02 10:07] MED LIST changes: +EPIN0.055 OU; -EPIN1DRO OU
[2024-02-02] MEDS ORDERED: HYDR-3490 PO (10:47)
[2024-02-02] MEDS: methylPREDNISolone 125MG 2ML VIAL IV ONE (11:54)
[2024-02-02 12:03] LABS: BASO % 0.5 % (0.0-1.0); EOS % 0.5 % (0.0-3.0); HEMATOCRIT 44.3 % (42.0-52.0); HEMOGLOBIN 14.8 g/dl (13.5-17.5); LYMPH # 1.6 10^3/uL (1.5-5.0); LYMPH % 20.3 % (24.0-44.0); MEAN CORPUSCULAR HEMOGLOBIN 29.2 pg (27.0-33.0); MEAN CORPUSCULAR HGB CONC 33.4 g/dl (32.0-36.5); MEAN CORPUSCULAR VOLUME 87.4 fl (80.0-96.0); MONO # 0.6 10^3/uL (0.0-0.8); MONO % 8.1 % (2.0-8.0); NEUTROPHILS # 5.6 10^3/uL (1.5-8.5); NEUTROPHILS % 70.3 % (36.0-66.0); PLATELET COUNT, AUTOMATED 170 10^3/uL (150-450); RED BLOOD COUNT 5.07 10^6/uL (4.30-6.10); WHITE BLOOD COUNT 7.9 10^3/uL (4.0-10.0)
[2024-02-02] MEDS: IPRATROPIUM 0.5MG/ALBUTEROL 2.5MG INH SOL UD 3ML (DUONEB) NEB PRN (12:11)
[2024-02-02 12:30] LABS: ALBUMIN 3.9 G/DL (3.2-5.2); ALKALINE PHOSPHATASE 66 U/L (40-129); ALT/SGPT 16 U/L (7.0-40); AST/SGOT 14 U/L (<34); BILIRUBIN,TOTAL 0.8 MG/DL (0.3-1.2); BLOOD UREA NITROGEN 18 MG/DL (9-23); CALCIUM LEVEL 9.2 MG/DL (8.3-10.6); CARBON DIOXIDE LEVEL 29 MMOL/L (20-31); CHLORIDE LEVEL 100 MMOL/L (98-107); CPK CREATINE PHOSPHOKINASE 85 U/L (46-171); CREATININE FOR GFR 0.78 MG/DL (0.70-1.30); GLOMERULAR FILTRATION RATE > 60.0 (>35); GLUCOSE, FASTING 143 MG/DL (74-106); MB/CK RELATIVE INDEX 1.17 (< OR =4); POTASSIUM SERUM 4.3 MMOL/L (3.5-5.1); SODIUM LEVEL 136 MMOL/L (136-145); TOTAL PROTEIN 7.4 G/DL (5.7-8.2)
[2024-02-02 12:37] LABS: PROCALCITONIN <0.04 ng/ml
[2024-02-02] MEDS: FUROSEMIDE 20MG/2ML VIAL IV ONE (13:21)
[2024-02-02 14:38] LABS: ERYTHROCYTE SEDIMENTATION RATE 16 mm/hr (0-20)
[2024-02-02 14:43] LABS: C REACTIVE PROTEIN QUANTITATIV < 0.40 MG/DL (<1.0)
[2024-02-02] MEDS ORDERED: MOM 30ML SUSPENSION UDC PO PRN (15:00)
[2024-02-02] MEDS ORDERED: IPRATROPIUM 0.5MG/ALBUTEROL 2.5MG INH SOL UD 3ML (DUONEB) NEB PRN (15:00)
[2024-02-02] MEDS ORDERED: ACETAMINOPHEN 325 MG TAB PO PRN (15:00)
[2024-02-02] MEDS ORDERED: ALBU8.5H INH (15:45)
[2024-02-02] MEDS ORDERED: FLUT50SP33 (15:45)
[2024-02-02] MEDS: predniSONE 20 MG TAB PO SCH (15:45)
[2024-02-02] MEDS: AZITHROMYCIN 250MG TABLET PO SCH (15:45)
[2024-02-02] MEDS ORDERED: TELMISARTAN 20 MG TAB PO SCH (15:50)
[2024-02-02] MEDS ORDERED: ALBUTEROL 90 MCG/ACT 8GM HFA INHALER INH PRN (15:50)
[2024-02-02] MEDS ORDERED: HOME MED LIST COMPLETE! XX SCH (15:50)
[2024-02-02 16:04] LABS: PARTIAL THROMBOPLASTIN TIME 28.9 SECONDS (24.8-34.2); PROTHROMBIN TIME 13.5 SECONDS (12.5-14.5)
[2024-02-02 16:40] VITALS: BP 153/91; TEMP 97.9; O2SAT 93
[2024-02-02 19:54] VITALS: BP 149/91; TEMP 98.2; O2SAT 94
[2024-02-02] MEDS: DOCUSATE SODIUM 100MG CAPSULE PO SCH (21:30)
[2024-02-02] MEDS: ASCORBIC ACID 250 MG TAB PO SCH (21:30)
[2024-02-02] MEDS: TELMISARTAN 20 MG TAB PO SCH (21:30)
[2024-02-02] MEDS: TAMSULOSIN 0.4 MG CAP PO SCH (21:30)
[2024-02-02] MEDS: ATORVASTATIN 10 MG TAB PO SCH (21:30)
[2024-02-02] MEDS: LATANOPROST 0.005% OPHTH SOLN 2.5 ML OU SCH (21:32)
[2024-02-03 03:54] VITALS: BP 150/89; TEMP 98.1; O2SAT 97
[2024-02-03 06:36] LABS: HEMATOCRIT 42.3 % (42.0-52.0); HEMOGLOBIN 14.5 g/dl (13.5-17.5); MEAN CORPUSCULAR HEMOGLOBIN 29.4 pg (27.0-33.0); MEAN CORPUSCULAR HGB CONC 34.3 g/dl (32.0-36.5); MEAN CORPUSCULAR VOLUME 85.8 fl (80.0-96.0); PLATELET COUNT, AUTOMATED 169 10^3/uL (150-450); RED BLOOD COUNT 4.93 10^6/uL (4.30-6.10); WHITE BLOOD COUNT 11.5 10^3/uL (4.0-10.0)
[2024-02-03 07:05] LABS: BLOOD UREA NITROGEN 23 MG/DL (9-23); CALCIUM LEVEL 9.1 MG/DL (8.3-10.6); CARBON DIOXIDE LEVEL 29 MMOL/L (20-31); CHLORIDE LEVEL 98 MMOL/L (98-107); CREATININE FOR GFR 0.81 MG/DL (0.70-1.30); GLOMERULAR FILTRATION RATE > 60.0 (>35); GLUCOSE, FASTING 207 MG/DL (74-106); POTASSIUM SERUM 4.4 MMOL/L (3.5-5.1); SODIUM LEVEL 135 MMOL/L (136-145)
[2024-02-03] MEDS ORDERED: PRED20TA PO (08:26)
[2024-02-03] MEDS ORDERED: BENZ200C70 PO (08:29)
[2024-02-03] MEDS: RIVAROXABAN 10MG TAB (XARELTO) PO SCH (09:42)
[2024-02-03] MEDS: prednisoLONE ACET 1% OPHTH SUSP 5ML OD SCH (09:44)
== END 2024-02-03 11:00 | disposition home or self-care (01) ==
LOC: M ED 10:07 → M ED INP 14:59 → M MS5PR 16:40
PROVIDERS: ADMIT Student in an Organized Health Care Education/Training Program; ATTEND Student in an Organized Health Care Education/Training Program
DX: J84.9 Interstitial pulmonary disease, unspecified (principal); I10 Essential (primary) hypertension; K21.9 Gastro-esophageal reflux disease without esophagitis; E11.9 Type 2 diabetes mellitus without complications; N40.0 Benign prostatic hyperplasia without lower urinary tract symptoms; Z79.52 Long term (current) use of systemic steroids; Z79.899 Other long term (current) drug therapy
CPT/HCPCS: 36415; 71045; 71250; 80048; 80053; 81001; 82550; 82553; 83605; 83880; 84145; 84443; 84484; 85025; 85027; 85610; 85652; 85730; 86140; 87040; 87486; 87581; 87633; 87798; 93005; 94640; 96374; 96375; 97161; 99285; G0378; J1940; J2919; J7512

== ENCOUNTER → 2024-10-01 | Outpatient (CLI) | payer MEDICARE ==
[~2024-10-01] MED LIST changes: +ALBU8.5H INH; +BENZ200C70 PO; +FAMO40TA3 PO; +FLUT50SP33; +HYDR-3490 PO; +HYDR12.510 PO; -HYDR12CA PO; +LASI20TA3 PO; +NORV5TAB PO; +NYST-38 SS; +PRED20TA PO; +QUET1TAB17 PO; +SLOW1TAB3 PO; -SLOWTAB2 PO
== END ==
LOC: M RAD 12:50
PROVIDERS: ATTEND Physician Assistant
DX: S22.068A Other fracture of T7-T8 thoracic vertebra, initial encounter for closed fracture (principal); M47.814 Spondylosis without myelopathy or radiculopathy, thoracic region; Y93.9 Activity, unspecified; Y92.9 Unspecified place or not applicable

== ENCOUNTER → 2024-10-29 | Outpatient (CLI) | payer MEDICARE | LOC: M RAD 09:14 | PROVIDERS: ATTEND Physician Assistant | DX: S22.068A Other fracture of T7-T8 thoracic vertebra, initial encounter for closed fracture (principal); W18.30XA Fall on same level, unspecified, initial encounter; Y92.009 Unspecified place in unspecified non-institutional (private) residence as the place of occurrence of the external cause ==

== ENCOUNTER → 2024-12-15 | Outpatient (CLI) | payer MEDICARE ==
[2024-12-15 10:04] LABS: BASO # 0.0 10^3/uL (0.0-0.2); BASO % 0.6 % (0.0-1.0); EOS # 0.2 10^3/uL (0.0-0.5); EOS % 3.1 % (0.0-3.0); LYMPH # 2.8 10^3/uL (1.5-5.0); LYMPH % 41.2 % (24.0-44.0); MONO # 0.7 10^3/uL (0.0-0.8); MONO % 10.5 % (2.0-8.0); NEUTROPHILS # 3.0 10^3/uL (1.5-8.5); NEUTROPHILS % 44.3 % (36.0-66.0); PLATELET COUNT, AUTOMATED 155 10^3/uL (150-450)
[2024-12-15 10:36] LABS: CALCIUM LEVEL 8.8 MG/DL (8.3-10.6); CARBON DIOXIDE LEVEL 30.0 MMOL/L (20-31); CHLORIDE LEVEL 104.0 MMOL/L (98-107); CHOLESTEROL LEVEL 158.0 MG/DL (<200); CHOLESTEROL RISK RATIO 2.86 (<5); CREATININE FOR GFR 0.98 MG/DL (0.70-1.30); GLOMERULAR FILTRATION RATE 73.7 (>35); LDL CHOLESTEROL 90.2 MG/DL (<100); MAGNESIUM LEVEL 1.9 MG/DL (1.8-2.4); NON-HDL-C 102.8 MG/DL; POTASSIUM SERUM 4.5 MMOL/L (3.5-5.1); SODIUM LEVEL 143.0 MMOL/L (136-145); TRIGLYCERIDES LEVEL 63.0 MG/DL (<150)
[2024-12-15 10:39] LABS: FREE T4 0.93 NG/DL (0.89-1.76)
== END ==
LOC: M LAB 08:56 → M PLALAB 08:56
PROVIDERS: ATTEND Nurse Practitioner Family
DX: I10 Essential (primary) hypertension (principal); E78.2 Mixed hyperlipidemia; I50.42 Chronic combined systolic (congestive) and diastolic (congestive) heart failure